=== PATIENT | female | born 1955 | race Caucasian/White ===

== ENCOUNTER 2019-06-07 12:18 | Outpatient (CLI) | payer MEDICAID ==
[2019-06-07] MEDS ORDERED: ALENDRONATE SOD10 MG ORAL (15:45)
[2019-06-07] MEDS ORDERED: NEURONTIN100 MG ORAL (15:45)
[2019-06-07] MEDS ORDERED: ASPIRIN EC81 MG ORAL (15:45)
[2019-06-07] MEDS ORDERED: CYMBALTA60 MG ORAL (15:45)
[2019-06-07] MEDS ORDERED: AMBIEN5 MG ORAL (15:45)
[2019-06-07] MEDS ORDERED: SINEMET 25-1001 EAC1 ORAL (15:45)
--- NOTE | 2019-06-07 20:29 | Consultation ---
DATE OF CONSULTATION: 06/07/2019 GASTROENTEROLOGY CONSULTATION CONSULTING PHYSICIAN: Bogdan Marie MD. CHIEF COMPLAINT: Referral for hepatitis C. PAST MEDICAL HISTORY: 1. Hiatal hernia. 2. Gastritis. 3. Parkinson disease. 4. Osteoporosis. PAST SURGICAL HISTORY: Multiple back surgeries. MEDICATIONS: Please see medication reconciliation list for recent medications, Fosamax. FAMILY HISTORY: No family history of GI malignancies. SOCIAL HISTORY: The patient denies any recent tobacco, alcohol, or IV drug abuse. ALLERGIES: No known drug allergies. REVIEW OF SYSTEMS: Ten-point review of systems was performed and pertinent positives as in HPI. Mainly, GI-staples was abdominal bloating. PHYSICAL EXAMINATION: VITAL SIGNS: Stable. HEENT: Normocephalic and atraumatic. Sclerae anicteric. NECK: Supple. No evidence of obvious lymphadenopathy. CARDIOVASCULAR: Regular rhythm. Plus S1, S2. LUNGS: Clear to auscultation bilaterally. ABDOMEN: Positive bowel sounds. Soft and nontender. No rebound. No guarding. No peritoneal sign. EXTREMITIES: No cyanosis. No clubbing. No edema. ASSESSMENT AND PLAN: This is a 63-year-old female referred for hepatitis C, hepatitis C antibody positive, hepatitis C RNA negative. The patient was reassured that the patient does not have hepatitis C. In terms of GI workup, she had a colonoscopy according to her in 2018. We do not have the records. We told her to bring it. She also had endoscopy in 2014, which we do have the records, which showed H. pylori-negative gastritis. In terms of abdominal bloating, the patient was given the name for two probiotics to try, either Align or VSL#3, whichever she can get her hand on and come back in the office in 3 months for followup. Bogdan Marie M.D. DR: Saul JOB#: [id number] CC:
== END 2019-06-07 15:17 | disposition home or self-care (01) ==
LOC: PAN 12:18
DX: B19.20 Unspecified viral hepatitis C without hepatic coma (principal); B20 Human immunodeficiency virus [HIV] disease; M81.0 Age-related osteoporosis without current pathological fracture; R14.0 Abdominal distension (gaseous)
CPT/HCPCS: G0463